=== PATIENT | female | born 1960 | race Caucasian/White ===

== ENCOUNTER → 2016-10-02 | Day surgery (SDC) | payer BC ==
[~2016-10-02] VITALS: Ht 152.4 cm; Wt 84.7 kg
[~2016-10-02] MED LIST: FLOMAX0.4 MG PO; HYDRODIURIL25 MG PO; PRINIVIL OR ZES10 MG PO; TYLENOL EXTRA500 MG PO; TYLENOL WITH C1 EACH PO
--- NOTE | ~2016-10-02 | OR ---
PATIENT'S NAME: MARGARET FINCH [facility] AGE: 56 Y [address] ROOM: [place] [address] LOCATION: [facility] [place] ADMIT DATE: 10/02/2016 OR/Procedure Report DISCHARGE DATE: FAMILY PHYSICIAN: Tarun Keller MD ATTENDING PHYSICIAN: Mary Bhardwaj SURGEON: Mary Bhardwaj MD NEWS VIDEOTAPE EDITOR: DATE OF PROCEDURE: 10/02/2016 POSTOPERATIVE DIAGNOSIS: Right distal ureter stone. POSTOPERATIVE DIAGNOSIS: Right distal ureter stone. PROCEDURE PERFORMED: Cystoscopy, left ureteroscopy, laser lithotripsy, stone extraction with stent placement. ANESTHESIA: General. COMPLICATIONS: None. INDICATION FOR PROCEDURE: The patient is a 56-year-old female, complaining of an approximately 1-month history of right flank pain. The patient had an abdominopelvic CT scan yesterday, which revealed an 8.4 mm distal right ureteral stone with severe hydronephrosis. DETAILS OF PROCEDURE: After informed consent was obtained, the patient was taken to the operating room. A general anesthetic was applied. She was placed in a dorsal lithotomy position. The groin area was prepped and draped in normal sterile fashion. A cystoscope was introduced into the urethra and bladder without difficulty. The right ureteral orifice was identified and I attempted to cannulate it with a guidewire. After multiple attempts, I then used an open-ended catheter and was able to pass the guidewire through the open-ended catheter up into the renal pelvis. Next, a balloon dilator was introduced into the distal ureter, it was dilated to 16 atmospheres for 4 minutes. The balloon was then deflated and removed. Ureteroscope was then introduced into the distal ureter where the stone was clearly visualized. The holmium laser fiber was then introduced and this was used to fragment the stone into multiple smaller pieces. Following that, a tripod basket was used to extract the stone fragments to send to the lab for analysis. I then back loaded the cystoscope over the guidewire and passed a 6-Sudanese multi-length ureteral stent up into the renal pelvis. Radiograph imaging showed good positioning of the stent. The patient tolerated the procedure well and was transferred to recovery room in good condition. PATIENT'S NAME: MARGARET FINCH [facility] AGE: 56 Y [address] ROOM: [place] [address] LOCATION: [facility] [place] ADMIT DATE: 10/02/2016 OR/Procedure Report DISCHARGE DATE: FAMILY PHYSICIAN: Tarun Keller MD ATTENDING PHYSICIAN: Mary Bhardwaj MARY BHARDWAJ MD JILL/modl /[id number] CC: Tarun Keller MD d: 10/03/16 0118 t: 10/19/16 1915, OPERATIVE SUMMARY
== END | disposition disaster alternative care site (69) ==
LOC: GPOC 10-01 16:00 → GSDC 13:12 → GPOC 16:00
PROC: 0TF68ZZ Fragmentation in Right Ureter, Via Natural or Artificial Opening Endoscopic (ICD-10-PCS; principal; 2016-10-02)
PROC: 0T768DZ Dilation of Right Ureter with Intraluminal Device, Via Natural or Artificial Opening Endoscopic (ICD-10-PCS; 2016-10-02)
DX: N13.2 Hydronephrosis with renal and ureteral calculous obstruction (principal); I10 Essential (primary) hypertension; E78.1 Pure hyperglyceridemia; Z87.442 Personal history of urinary calculi; Z87.891 Personal history of nicotine dependence; Z98.51 Tubal ligation status; Z79.899 Other long term (current) drug therapy
CPT/HCPCS: C1725; C1769; J1100; J1956; J2001; J2405; J2550; J7120